=== PATIENT | female | born 1985 | race Caucasian/White ===

== ENCOUNTER 2022-07-11 09:21 | Day surgery (SDC) | payer OTHER ==
[2022-07-11 09:49] VITALS: BMI 39.7
[2022-07-11] MEDS ORDERED: hydrALAZINE 20 MG/ML VIAL SLOW IVP PRN (09:56)
== END 2022-07-11 12:00 | disposition home or self-care (01) ==
LOC: CSHLD/OP 09:21
PROVIDERS: ATTEND Obstetrics & Gynecology
DX: O46.93 Antepartum hemorrhage, unspecified, third trimester (principal); O09.523 Supervision of elderly multigravida, third trimester; O41.03X0 Oligohydramnios, third trimester, not applicable or unspecified; O99.810 Abnormal glucose complicating pregnancy; O34.211 Maternal care for low transverse scar from previous cesarean delivery; O22.13 Genital varices in pregnancy, third trimester; O88.113 Amniotic fluid embolism in pregnancy, third trimester; Z79.899 Other long term (current) drug therapy; Z3A.35 35 weeks gestation of pregnancy
CPT/HCPCS: 76819

== ENCOUNTER 2022-07-20 10:02 | Inpatient (IN) | payer OTHER ==
[2022-07-20] MEDS ORDERED: Morphine PF 10 MG/10 ML VIAL ONE (10:39)
[2022-07-20] MEDS ORDERED: Phenylephrine 10 MG/ML VIAL ONE (10:40)
[2022-07-20] MEDS ORDERED: Phenylephrine 40 MG/NS 250 ML 250 ML ONE (10:40)
[2022-07-20] MEDS ORDERED: Oxytocin 10 UNITS/ML VIAL ONE (10:40)
[2022-07-20] MEDS ORDERED: Ketorolac Tromethamine 30 MG/ML VIAL ONE (10:40)
[2022-07-20] MEDS ORDERED: Dexamethasone 4 mg/ml Vial ONE (10:40)
[2022-07-20] MEDS ORDERED: Ondansetron PF 4 MG/2 ML Vial ONE (10:40)
[2022-07-20 11:13] VITALS: BMI 39.7
[2022-07-20] MEDS ORDERED: CEFAZOLIN 2 GM VIAL ONE (11:45)
[2022-07-20] MEDS ORDERED: Famotidine/PF 20 mg/2ml Vial ONE (11:45)
[2022-07-20] MEDS ORDERED: Lactated Ringer's 1,000 ML IV SCH (11:50)
[2022-07-20] MEDS ORDERED: CEFAZOLIN 2 GM in Sodium Chloride 0.9% 100 ML IVPB SCH (11:50)
[2022-07-20] MEDS ORDERED: Bicitra 30 ML UDCUP PO PRN (11:50)
[2022-07-20] MEDS ORDERED: hydrALAZINE 20 MG/ML VIAL SLOW IVP PRN ×2 (11:50→16:39)
[2022-07-20] MEDS ORDERED: Promethazine HCl 25 MG/ML VIAL IM PRN ×2 (11:50→13:21)
[2022-07-20] MEDS ORDERED: Butorphanol Tartrate 1 MG/ML VIAL SLOW IVP PRN (11:50)
[2022-07-20] MEDS ORDERED: Ondansetron PF 4 MG/2 ML Vial IVP PRN ×3 (11:50→16:39)
[2022-07-20] MEDS ORDERED: NS w/ Oxytocin 30 units 500 ML IV SCH ×2 (11:50→16:39)
[2022-07-20] MEDS ORDERED: Famotidine/PF 20 mg/2ml Vial SLOW IVP PRN (11:50)
[2022-07-20 11:58] LABS: Hemoglobin 10.8 g/dL (12.0-15.5); Mean Corpuscular HGB CONC 33.2 g/dL (32.0-36.0); Mean Corpuscular Hemoglobin 30.3 pg (27.0-33.0); Mean Platelet Volume 11.6 fl (7.4-10.4); Platelet Count 242 10x3/uL (150-450); RBC Distribution Width 13.4 % (11.5-14.5); Red Blood Cell (RBC) Count 3.57 10x6/uL (3.90-5.03); White Blood Cell (WBC) Count 15.2 10x3/uL (3.5-10.5)
[2022-07-20 12:35] LABS: Syphilis Antibody Nonreactive (Nonreactive); Syphilis Antibody Index 0.05 S/CO (<1.00 Non-Reactive)
[2022-07-20 12:37] LABS: HBSAg Index 0.13 S/CO (0-0.99); Hep B Surf Ag - L&D Non-Reactive S/CO (NonReactive)
[2022-07-20] MEDS ORDERED: Naloxone HCl 0.4 mg/ml Vial IV PRN (13:21)
[2022-07-20] MEDS ORDERED: Promethazine HCl 25 MG SUPP PR PRN (13:21)
[2022-07-20] MEDS ORDERED: Moisturizing Cream (Eucerin) 113 GM JAR TOP PRN (13:21)
[2022-07-20] MEDS ORDERED: diphenhydrAMINE 50 MG/ML VIAL IVP PRN (13:21)
[2022-07-20] MEDS ORDERED: Ketorolac Tromethamine 30 MG/ML VIAL IVP PRN (13:21)
[2022-07-20] MEDS ORDERED: Naloxone HCl 0.4 mg/ml Vial IVP PRN ×2 (13:21)
[2022-07-20] MEDS ORDERED: Communication Order-Pharmacy FS SCH (13:30)
[2022-07-20] MEDS ORDERED: Bisacodyl 10 MG SUPP PR PRN (16:39)
[2022-07-20] MEDS ORDERED: Simethicone Chewable 80 MG TAB PO PRN (16:39)
[2022-07-20] MEDS ORDERED: diphenhydrAMINE 25 MG CAP PO PRN (16:39)
[2022-07-20] MEDS ORDERED: Boostrix 0.5 ML (Tdap) VIAL (>/=7 yrs of age) IM ONE (16:39)
[2022-07-20] MEDS ORDERED: Lanolin Ointment 7 GM TUBE TOP PRN (16:39)
[2022-07-20] MEDS: Docusate 100 MG CAP PO SCH (19:56)
[2022-07-21] MEDS ORDERED: HYDROcodone/Acetaminophen 5/325 mg Tablet PO PRN ×2 (02:00)
[2022-07-21 05:01] LABS: Hemoglobin 9.8 g/dL (12.0-15.5); Mean Corpuscular Hemoglobin 30.3 pg (27.0-33.0); Mean Platelet Volume 11.2 fl (7.4-10.4); Platelet Count 236 10x3/uL (150-450); RBC Distribution Width 13.5 % (11.5-14.5); Red Blood Cell (RBC) Count 3.23 10x6/uL (3.90-5.03); White Blood Cell (WBC) Count 14.7 10x3/uL (3.5-10.5)
[2022-07-21] MEDS: Prenatal Vitamin 1 TAB PO SCH (08:33)
[2022-07-21] MEDS: Docusate 100 MG CAP PO SCH ×2 (08:33→21:22)
[2022-07-21] MEDS: Ibuprofen 800 MG TAB PO SCH ×2 (13:29→21:22)
[2022-07-22] MEDS: Ibuprofen 800 MG TAB PO SCH ×2 (05:51→13:25)
[2022-07-22] MEDS: Docusate 100 MG CAP PO SCH (08:39)
[2022-07-22] MEDS: Prenatal Vitamin 1 TAB PO SCH (08:39)
[2022-07-22 11:20] VITALS: BP 125/71; TEMP 98.4
== END 2022-07-22 13:45 | disposition home or self-care (01) | DRG 788 ==
LOC: CSHLD 10:02 → CSHPP 15:32
PROVIDERS: ADMIT Obstetrics & Gynecology; ATTEND Obstetrics & Gynecology
PROC: 10D00Z1 Extraction of Products of Conception, Low, Open Approach (ICD-10-PCS; principal; 2022-07-20)
DX: O41.03X0 Oligohydramnios, third trimester, not applicable or unspecified (principal); Z3A.36 36 weeks gestation of pregnancy; Z37.0 Single live birth; O34.211 Maternal care for low transverse scar from previous cesarean delivery
CPT/HCPCS: 36415; 51702; 85027; 86780; 86850; 86900; 86901; 87340; J1100; J1200; J1885; J2274; J2310; J2370; J2405; J2590; J3490; S0028